=== PATIENT | male | born 1950 | race Asian ===

== ENCOUNTER 2021-01-20 14:31 | Emergency (ER) | payer OTHER ==
[~2021-01-20] VITALS: Ht 182.9 cm; Wt 79.4 kg
[2021-01-20 14:31] VITALS: TEMP 97.6
[2021-01-20 16:15] VITALS: BP 132/72
== END 2021-01-20 16:15 | disposition home or self-care (01) ==
LOC: ED 14:31
DX: J44.1 Chronic obstructive pulmonary disease with (acute) exacerbation (principal); F17.210 Nicotine dependence, cigarettes, uncomplicated
CPT/HCPCS: 93005; 94664; 96372; 99283; J2930